=== PATIENT | female | born 1970 | race Two or more races ===

== ENCOUNTER 2020-09-24 06:01 | Inpatient (IN) | payer MEDICAID ==
[~2020-09-24] VITALS: Ht 165.1 cm; Wt 81.4 kg
[2020-09-24] MEDS ORDERED: NITROGLYCERIN 2% (1 GM=INCH) PACKET TP ONE (06:30)
[2020-09-24] MEDS ORDERED: ASPIRIN 81 MG CHEWABLE TABLET PO ONE (06:30)
[2020-09-24 06:53] LABS: BASOPHILS % (AUTO) 0.9 % (0.0-2.0); EOSINOPHILS % (AUTO) 2.7 % (1.0-6.0); HEMATOCRIT 29.4 % (36-46); HEMOGLOBIN 10.1 g/dL (12.0-16.0); LYMPHOCYTES # (AUTO) 1.9 K/uL (1.0-4.8); LYMPHOCYTES % (AUTO) 17.8 % (22.0-44.0); MEAN CORPUSCULAR HEMOGLOBIN 34.1 pg (26.0-34.0); MEAN CORPUSCULAR HGB CONC 34.5 G/dL (31.0-37.0); MEAN CORPUSCULAR VOLUME 99 fL (80-100); MONOCYTES # (AUTO) 0.7 K/uL (0.1-1.0); MONOCYTES % (AUTO) 6.6 % (2.0-9.0); NEUTROPHILS # (AUTO) 7.5 K/uL (1.8-7.7); PLATELET COUNT (AUTO) 202 K/uL (150-450); RED BLOOD CELL COUNT(AUTO) 2.97 MIL/uL (4.00-5.20)
[2020-09-24 06:56] LABS: GLUCOSE,POINT OF CARE 158 MG/DL (70-110)
[2020-09-24 06:56] LABS: CALCIUM, TOTAL 7.5 mg/dL (8.8-10.5); CREATININE 13.43 mg/dL (0.60-1.30); POTASSIUM 5.5 mmol/L (3.5-5.1)
[2020-09-24] MEDS ORDERED: ONDANSETRON HCL 4 MG/2 ML VIAL IVP PRN ×2 (07:30→12:00)
[2020-09-24] MEDS ORDERED: ACETAMINOPHEN 325 MG TABLET PO PRN (07:30)
[2020-09-24 08:00] VITALS: BP 141/85
[2020-09-24 09:17] VITALS: BP 176/91
[2020-09-24 11:56] VITALS: BP 145/91
[2020-09-24] MEDS ORDERED: MAGNESIUM HYDROXIDE SUSPENSION 30 ML UDCUP PO PRN (12:00)
[2020-09-24] MEDS ORDERED: IPRATROPIUM BROMIDE 0.5 MG/2.5 ML NEB SOLUTION NEB PRN (12:00)
[2020-09-24] MEDS ORDERED: HYDROCODONE/ACETAMINOPHEN 5-325 MG TABLET PO PRN (12:00)
[2020-09-24] MEDS ORDERED: MORPHINE SULFATE 2 MG/ML SYRINGE IVP PRN (12:00)
[2020-09-24] MEDS: NITROGLYCERIN 2% (1 GM=INCH) PACKET TP SCH ×3 (12:24→23:59)
[2020-09-24] MEDS ORDERED: ASPI-728 PO (13:11)
[2020-09-24] MEDS ORDERED: DIPH25CA48 PO (13:11)
[2020-09-24] MEDS ORDERED: DOCU-275 PO (13:11)
[2020-09-24] MEDS ORDERED: FOLI0.8T22 PO (13:11)
[2020-09-24] MEDS ORDERED: SODI650T33 PO (13:11)
[2020-09-24] MEDS ORDERED: HYDR-4396 PO (13:11)
[2020-09-24] MEDS ORDERED: INSLAN SQ (13:11)
[2020-09-24] MEDS ORDERED: SEVE800 PO (13:11)
[2020-09-24] MEDS ORDERED: GLIP10 PO (13:11)
[2020-09-24] MEDS ORDERED: AMLO-258 PO (13:11)
[2020-09-24] MEDS ORDERED: SIMV-260 PO (13:11)
[2020-09-24] MEDS ORDERED: BISA10SU11 PR (13:11)
[2020-09-24] MEDS ORDERED: GABA-1216 PO (13:11)
[2020-09-24] MEDS ORDERED: LOSA50TA37 PO (13:11)
[2020-09-24] MEDS: LISINOPRIL 10 MG TABLET PO SCH (13:34)
[2020-09-24 15:32] VITALS: BP 152/82
[2020-09-24] MEDS: ACETAMINOPHEN 325 MG TABLET PO PRN (17:17)
[2020-09-24] MEDS: SEVELAMER CARBONATE 800 MG TABLET PO SCH (17:59)
[2020-09-24] MEDS: DOCUSATE SODIUM 100 MG CAPSULE PO SCH (19:58)
[2020-09-24 20:12] VITALS: BP 140/81
[2020-09-24 20:59] LABS: GLUCOMETER DEV NAME(LOC) 5N.3; GLUCOSE,POINT OF CARE 174 MG/DL (70-110)
[2020-09-24 22:57] LABS: GLUCOMETER DEV NAME(LOC) 5S.1; GLUCOSE,POINT OF CARE 128 MG/DL (70-110)
[2020-09-24] MEDS ORDERED: SODIUM CHLORIDE 0.9% 2,000 ML ONE (22:57)
[2020-09-25] MEDS: ZOLPIDEM TARTRATE 10 MG TABLET PO PRN ×2 (00:23→22:19)
[2020-09-25 05:45] VITALS: BP 137/93
[2020-09-25] MEDS: NITROGLYCERIN 2% (1 GM=INCH) PACKET TP SCH ×3 (05:58→17:56)
[2020-09-25 07:32] LABS: CHOL/HDL RATIO 2.2 (3.9-5.7)
[2020-09-25 08:21] VITALS: BP 155/79
[2020-09-25] MEDS: LISINOPRIL 10 MG TABLET PO SCH (09:01)
[2020-09-25] MEDS: SEVELAMER CARBONATE 800 MG TABLET PO SCH ×3 (09:01→17:56)
[2020-09-25] MEDS: ASPIRIN 81 MG CHEWABLE TABLET PO SCH (09:02)
[2020-09-25] MEDS: DOCUSATE SODIUM 100 MG CAPSULE PO SCH ×2 (09:02→20:21)
[2020-09-25] MEDS: ACETAMINOPHEN 325 MG TABLET PO PRN (09:06)
[2020-09-25 09:30] LABS: GLUCOMETER DEV NAME(LOC) 5S.1; GLUCOSE,POINT OF CARE 113 MG/DL (70-110)
[2020-09-25 12:16] VITALS: BP 154/89
[2020-09-25 15:31] VITALS: BP 171/78
[2020-09-25 18:20] LABS: GLUCOMETER DEV NAME(LOC) 5S.1; GLUCOSE,POINT OF CARE 162 MG/DL (70-110)
[2020-09-25 19:39] VITALS: BP 160/92
[2020-09-25] MEDS ORDERED: INSULIN LISPRO 100 UNITS/ML SQ PRN ×2 (21:15→21:30)
[2020-09-25] MEDS ORDERED: GLUCAGON,HUMAN RECOMBINANT 1 MG VIAL IM PRN (21:15)
[2020-09-25] MEDS ORDERED: DEXTROSE 50%-WATER 25 GM/50 ML SYG IVP PRN (21:30)
[2020-09-26 00:06] VITALS: BP 155/89
[2020-09-26] MEDS: NITROGLYCERIN 2% (1 GM=INCH) PACKET TP SCH ×3 (00:23→12:47)
[2020-09-26 03:25] LABS: GLUCOMETER DEV NAME(LOC) 5N.3; GLUCOSE,POINT OF CARE 268 MG/DL (70-110)
[2020-09-26 04:22] VITALS: BP 156/86
[2020-09-26 06:06] LABS: GLUCOMETER DEV NAME(LOC) 5S.1; GLUCOSE,POINT OF CARE 53 MG/DL (70-110)
[2020-09-26 06:06] LABS: GLUCOMETER DEV NAME(LOC) 5S.1; GLUCOSE,POINT OF CARE 243 MG/DL (70-110)
[2020-09-26 06:06] LABS: GLUCOMETER DEV NAME(LOC) 5S.1; GLUCOSE,POINT OF CARE 88 MG/DL (70-110)
[2020-09-26 07:07] LABS: BILIRUBIN,TOTAL 0.3 mg/dL (0.1-1.0); CALCIUM, TOTAL 7.2 mg/dL (8.8-10.5); CREATININE 9.85 mg/dL (0.60-1.30); TOTAL PROTEIN, SERUM 6.8 g/dL (6.4-8.2)
[2020-09-26 07:22] LABS: POTASSIUM 6.5 mmol/L (3.5-5.1)
[2020-09-26] MEDS ORDERED: CALCIUM GLUCONATE 100 MG/ML 10 ML IVP ONE (07:45)
[2020-09-26] MEDS ORDERED: SODIUM ZIRCONIUM CYCLOSILICATE 5 GM POWDER PACKET PO ONE (07:45)
[2020-09-26 07:53] VITALS: BP 153/70
[2020-09-26] MEDS: DOCUSATE SODIUM 100 MG CAPSULE PO SCH (08:33)
[2020-09-26] MEDS: LISINOPRIL 10 MG TABLET PO SCH ×2 (08:33→13:30)
[2020-09-26] MEDS ORDERED: SODIUM CHLORIDE 0.9% 2,000 ML ONE (08:34)
[2020-09-26] MEDS: ASPIRIN 81 MG CHEWABLE TABLET PO SCH (08:34)
[2020-09-26] MEDS: SEVELAMER CARBONATE 800 MG TABLET PO SCH ×2 (08:34→12:47)
[2020-09-26] MEDS ORDERED: ACETAMINOPHEN 500 MG TABLET PO ONE (09:00)
[2020-09-26 11:18] VITALS: BP 155/79
[2020-09-26 21:03] LABS: GLUCOMETER DEV NAME(LOC) 5N.3; GLUCOSE,POINT OF CARE 275 MG/DL (70-110)
[2020-09-26 21:03] LABS: GLUCOMETER DEV NAME(LOC) 5N.3; GLUCOSE,POINT OF CARE 103 MG/DL (70-110)
[2020-09-27] MEDS ORDERED: EPOETIN ALFA 10,000 UNITS/ML 2 ML VIAL SQ SCH (09:00)
== END 2020-09-26 16:15 | disposition home or self-care (01) | DRG 145 ==
LOC: EMS 06:01 → 5S 08:37
PROVIDERS: ADMIT Hospitalist; ATTEND Hospitalist
PROC: 5A1D70Z Performance of Urinary Filtration, Intermittent, Less than 6 Hours Per Day (ICD-10-PCS; principal; 2020-09-24)
DX: R09.1 Pleurisy (principal); E21.3 Hyperparathyroidism, unspecified; E87.5 Hyperkalemia; E87.70 Fluid overload, unspecified; I12.0 Hypertensive chronic kidney disease with stage 5 chronic kidney disease or end stage renal disease; N18.6 End stage renal disease; D63.1 Anemia in chronic kidney disease; E11.22 Type 2 diabetes mellitus with diabetic chronic kidney disease; E78.5 Hyperlipidemia, unspecified; Z99.2 Dependence on renal dialysis; Z88.0 Allergy status to penicillin; Z88.5 Allergy status to narcotic agent; Z79.899 Other long term (current) drug therapy; Z79.4 Long term (current) use of insulin; Z79.82 Long term (current) use of aspirin
CPT/HCPCS: 87340; 93005; 93306; G0378; J0610; J7030; 36415-L1; 36415-TC; 71045-TC; 80061-TC